=== PATIENT | male | born 1930 | race Caucasian/White ===

== ENCOUNTER → 2017-12-15 | Outpatient (CLI) | payer BC, MEDICARE ==
[~2017-12-15] MED LIST: ALBU90OI INH; ALPR.5 PO; AMLO5 PO; ANTIBIOTIC; ATOR10 PO; BENZ100A PO; CALC.25 PO; CALCA500CH PO; CHOL10002 PO; Carbidopa-Levo1 EAC4 PO; ELIQUIS2.5 MG PO; ELIQUIS5 MG PO; FISH OIL 1,2001 EACH PO; FISH1000 PO; FURO40 PO; GABA100 PO; HYDACE10B PO; HYDR1TAB94; LEVCAR10; LORA.5 PO; METO25 PO; METO25ER PO; Mucinex600 MG PO; OLME20 PO; OLME20-12. PO; PARKINSONS MED; PSYL5.85P PO; ROPI2 PO; ROSU10TA; ROSU10TA PO; TAMS.4ER; TAMS.4ER PO; TRAM50 PO; Voltaren100 GM; ZOLP12.5 PO; ZOLP5 PO
[2017-12-15 10:06] LABS: BASOPHILS ABSOLUTE AUTO 0.02 K/mm3 (0.00-0.23); BASOPHILS PERCENT AUTO 0 % (0-2); EOSINOPHILS ABSOLUTE AUTO 0.18 K/mm3 (0.00-0.68); EOSINOPHILS PERCENT AUTO 3 % (0-6); Hematocrit 44.3 % (37.0-53.0); Hemoglobin 14.5 g/dL (13.5-17.5); IMMATURE GRAN ABSOLUTE AUTO 0.02 K/mm3 (0.00-0.10); IMMATURE GRAN PERCENT AUTO 0 % (0-1); LYMPHOCYTES ABSOLUTE AUTO 1.76 K/mm3 (0.84-5.20); LYMPHOCYTES PERCENT AUTO 30 % (21-46); MONOCYTES ABSOLUTE AUTO 0.56 K/mm3 (0.16-1.47); MONOCYTES PERCENT AUTO 10 % (4-13); Mean Corpuscular HGB 30.3 pg (26.0-34.0); Mean Corpuscular HGB Conc 32.7 g/dL (31.5-36.5); Mean Corpuscular Volume 93 fL (80-100); Mean Platelet Volume 9.9 fL (9.1-12.4); NEUTROPHILS PERCENT AUTO 57 % (41-73); Platelet Count 173 K/mm3 (150-400); RDW Coefficient Variation 14.4 % (11.7-14.2); Red Blood Cell Count 4.78 M/mm3 (4.30-5.90); White Blood Cell Count 5.84 K/mm3 (4.00-11.30)
[2017-12-15 10:43] LABS: Albumin, Blood 3.4 g/dL (3.4-5.0); Bilirubin, Total 0.8 mg/dL (0.1-1.0); Bun/Creatinine Ratio 17.7 (12.0-20.0); Calcium, Blood 9.4 mg/dL (8.5-10.1); Creatinine, Blood 1.92 mg/dL (0.60-1.20); Globulin, Blood 3.4 g/dL (2.2-4.0); Potassium, Blood 3.9 mmol/L (3.5-5.5); Total Protein, Blood 6.8 g/dL (6.4-8.2)
== END ==
LOC: LAB SHORT 09:55 → LAB EV 09:55
DX: N18.3 Chronic kidney disease, stage 3 (moderate) (principal)
CPT/HCPCS: 80053; 85025

== ENCOUNTER → 2018-03-15 | Outpatient (CLI) | payer BC, MEDICARE ==
[~2018-03-15] MED LIST changes: +ACETAMINOPHEN500 MG PO; +Augmentin 875-1 EACH PO; +FISH OIL 1,2001 EAC1 PO; -HYDACE10B PO; +LIDOCAINE1 EACH TOP; +Miralax17 GM PO; +Norco 10-325 T1 EACH PO; +OMEG1CAP30 PO; +ROXICODONE5 MG PO
== END | disposition home or self-care (01) ==
LOC: LAB SHORT 11:11 → LAB 11:11
DX: R19.7 Diarrhea, unspecified (principal)
CPT/HCPCS: 87493

== ENCOUNTER 2018-07-22 08:37 | Emergency (ER) | payer BC, MEDICARE ==
[~2018-07-22] VITALS: Ht 170.2 cm; Wt 81.7 kg
[~2018-07-22 08:37] MED LIST changes: +BISA10S PR; +Enema133 M1 PR; +Milk Of Ma400 MG/5 M PO; +[UNRECOGNIZED DRUG - OTHER] PO
[2018-07-22 09:03] LABS: BASOPHILS ABSOLUTE AUTO 0.02 K/mm3 (0.00-0.23); BASOPHILS PERCENT AUTO 0 % (0-2); EOSINOPHILS ABSOLUTE AUTO 0.19 K/mm3 (0.00-0.68); EOSINOPHILS PERCENT AUTO 3 % (0-6); Hematocrit 45.9 % (37.0-53.0); IMMATURE GRAN ABSOLUTE AUTO 0.02 K/mm3 (0.00-0.10); IMMATURE GRAN PERCENT AUTO 0 % (0-1); LYMPHOCYTES ABSOLUTE AUTO 1.57 K/mm3 (0.84-5.20); LYMPHOCYTES PERCENT AUTO 24 % (21-46); MONOCYTES ABSOLUTE AUTO 0.54 K/mm3 (0.16-1.47); MONOCYTES PERCENT AUTO 8 % (4-13); Mean Corpuscular HGB 30.9 pg (26.0-34.0); Mean Corpuscular HGB Conc 32.7 g/dL (31.5-36.5); Mean Corpuscular Volume 95 fL (80-100); Mean Platelet Volume 10.2 fL (9.1-12.4); NEUTROPHILS ABSOLUTE AUTO 4.12 K/mm3 (1.96-9.15); NEUTROPHILS PERCENT AUTO 64 % (41-73); Platelet Count 180 K/mm3 (150-400); RDW Coefficient Variation 14.1 % (11.7-14.2); RDW Standard Deviation 49.3 fL (35.1-46.3); Red Blood Cell Count 4.85 M/mm3 (4.30-5.90); White Blood Cell Count 6.46 K/mm3 (4.00-11.30)
[2018-07-22 09:16] LABS: Albumin, Blood 2.9 g/dL (3.4-5.0); Albumin/Globulin Ratio 0.8 (0.8-1.8); Bilirubin, Total 0.8 mg/dL (0.1-1.0); Bun/Creatinine Ratio 18.6 (12.0-20.0); Creatinine, Blood 1.88 mg/dL (0.60-1.20); Globulin, Blood 3.8 g/dL (2.2-4.0); Potassium, Blood 3.7 mmol/L (3.5-5.5); Total Protein, Blood 6.7 g/dL (6.4-8.2)
[2018-07-22 09:17] LABS: International Normalized Ratio 1.09; Prothrombin Time Results 11.2 Sec (9.7-11.5)
[2018-07-22] MEDS ORDERED: METO25ER PO (09:21)
[2018-07-22] MEDS ORDERED: OLME20 PO (09:23)
[2018-07-22] MEDS ORDERED: ELIQUIS2.5 MG PO (09:24)
[2018-07-22] MEDS ORDERED: FURO80 PO (09:28)
== END 2018-07-22 10:12 | disposition home or self-care (01) ==
LOC: ER 08:37
PROVIDERS: Emergency Medicine
DX: R60.0 Localized edema (principal); I12.9 Hypertensive chronic kidney disease with stage 1 through stage 4 chronic kidney disease, or unspecified chronic kidney disease; N18.4 Chronic kidney disease, stage 4 (severe); Z86.73 Personal history of transient ischemic attack (TIA), and cerebral infarction without residual deficits; Z88.2 Allergy status to sulfonamides; Z79.899 Other long term (current) drug therapy
CPT/HCPCS: 36415; 70450; 71046; 80053; 84484; 85025; 85610; 93005; 93010; 99285-25

== ENCOUNTER 2021-08-16 12:33 | Inpatient (IN) | payer BC, MEDICARE ==
[~2021-08-16] VITALS: Ht 172.7 cm; Wt 63.5 kg
[~2021-08-16 12:33] MED LIST changes: +CARBIDOPA-LEVO1 EA17 PO; -Carbidopa-Levo1 EAC4 PO; +FURO80 PO; +ROPINIROLE HCL2 MG PO
[2021-08-16 13:24] LABS: Source, Urine Straight Cath
[2021-08-16 13:28] LABS: BASOPHILS ABSOLUTE AUTO 0.02 K/mm3 (0.00-0.23); BASOPHILS PERCENT AUTO 0 % (0-2); EOSINOPHILS ABSOLUTE AUTO 0.04 K/mm3 (0.00-0.68); EOSINOPHILS PERCENT AUTO 1 % (0-6); Hematocrit 38.3 % (37.0-53.0); Hemoglobin 12.6 g/dL (13.5-17.5); IMMATURE GRAN ABSOLUTE AUTO 0.02 K/mm3 (0.00-0.10); IMMATURE GRAN PERCENT AUTO 0 % (0-1); LYMPHOCYTES ABSOLUTE AUTO 1.84 K/mm3 (0.84-5.20); LYMPHOCYTES PERCENT AUTO 25 % (21-46); MONOCYTES ABSOLUTE AUTO 0.71 K/mm3 (0.16-1.47); MONOCYTES PERCENT AUTO 10 % (4-13); Mean Corpuscular HGB 30.4 pg (26.0-34.0); Mean Corpuscular HGB Conc 32.9 g/dL (31.5-36.5); Mean Corpuscular Volume 93 fL (80-100); Mean Platelet Volume 10.6 fL (9.1-12.4); NEUTROPHILS ABSOLUTE AUTO 4.84 K/mm3 (1.96-9.15); NEUTROPHILS PERCENT AUTO 65 % (41-73); Platelet Count 210 K/mm3 (150-400); RDW Coefficient Variation 13.2 % (11.7-14.2); RDW Standard Deviation 45.2 fL (35.1-46.3); Red Blood Cell Count 4.14 M/mm3 (4.30-5.90); White Blood Cell Count 7.47 K/mm3 (4.00-11.30)
[2021-08-16 13:43] LABS: Appearance, Urine Clear (Clear); Bilirubin, Urine Neg (Neg); Blood, Urine 3+ (Neg); Color, Urine Yellow (P-Yellow); Glucose Qualitative, Urine Neg (Neg); Ketones, Urine Neg (Neg); Leukocyte Esterase, Urine Neg (Neg); Nitrite, Urine Neg (Neg); Protein, Urine 2+ (Neg); Specific Gravity, Urine 1.015 (1.003-1.022); Urobilinogen, Urine NORM (Normal)
[2021-08-16 14:00] LABS: Bacteria Mod /hpf; Red Blood Cells, Urine 0-2 /hpf (0-2)
[2021-08-16 14:01] LABS: Amorphous Light (0-Heavy); White Blood Cells, Urine Rare /hpf (0-5)
[2021-08-16 14:02] LABS: Squamous Epithelial Cells Not Seen /hpf (Few)
[2021-08-16 14:17] LABS: Troponin I <0.015 ng/mL (0.000-0.040)
[2021-08-16 14:30] LABS: Alanine Aminotransfer (ALT/SGP 6 U/L (12-78); Albumin, Blood 3.3 g/dL (3.4-5.0); Albumin/Globulin Ratio 0.7 (0.8-1.8); Alk Phos 68 U/L (50-136); Anion Gap 13 mmol/L (6-16); Aspartate Aminotrans (AST/SGOT 12 U/L (12-37); Bilirubin, Total 1.2 mg/dL (0.1-1.0); Blood Urea Nitrogen 88 mg/dL (8-24); Bun/Creatinine Ratio 9.2 (12.0-20.0); CO2, Blood 26 mmol/L (21-32); Calcium, Blood 9.8 mg/dL (8.5-10.1); Chloride, Blood 98 mmol/L (98-108); Creatinine, Blood 9.59 mg/dL (0.60-1.20); Globulin, Blood 4.6 g/dL (2.2-4.0); Glomerular Filtration Rate 5 (60-); Glucose, Blood 123 mg/dL (70-99); Potassium, Blood 3.8 mmol/L (3.5-5.5); Sodium, Blood 137 mmol/L (136-145); Total Protein, Blood 7.9 g/dL (6.4-8.2)
[2021-08-16 14:54] LABS: Influenza A, PCR NEGATIVE (NEGATIVE); Influenza B, PCR NEGATIVE (NEGATIVE); Resp Syncytial Virus, PCR NEGATIVE (NEGATIVE); SARS-Cov-2 (COVID-19) PCR, MMC NEGATIVE (NEGATIVE)
[2021-08-16 16:39] LABS: Creatine Kinase MB 2.4 ng/mL (0.0-3.6); Creatine Kinase MB Index 0.4 (0.0-4.0)
[2021-08-16] MEDS ORDERED: ARTIFICIAL TEAR15 M2 BOTHEYES (16:54)
[2021-08-16] MEDS ORDERED: BISA10S PR (16:55)
[2021-08-16] MEDS ORDERED: ASPERCREME LIDO73 ML TOP (16:55)
[2021-08-16] MEDS ORDERED: CARBAMIDE PEROXIDE BOTHEARS (16:56)
[2021-08-16] MEDS ORDERED: DULO30 PO (16:57)
[2021-08-16] MEDS ORDERED: MIRALAX17 GM PO (16:59)
[2021-08-16] MEDS ORDERED: ZOLP6.25 PO (20:10)
[2021-08-16] MEDS ORDERED: [UNRECOGNIZED DRUG - OTHER] PO (20:18)
[2021-08-16] MEDS ORDERED: OMEGA ACID ETHYL PO (20:18)
[2021-08-16 21:34] LABS: Bun/Creatinine Ratio 9.6 (12.0-20.0); Calcium, Blood 9.4 mg/dL (8.5-10.1); Creatinine, Blood 9.03 mg/dL (0.60-1.20); Potassium, Blood 4.1 mmol/L (3.5-5.5)
[2021-08-17 04:37] LABS: BASOPHILS ABSOLUTE AUTO 0.02 K/mm3 (0.00-0.23); BASOPHILS PERCENT AUTO 0 % (0-2); EOSINOPHILS ABSOLUTE AUTO 0.02 K/mm3 (0.00-0.68); EOSINOPHILS PERCENT AUTO 0 % (0-6); Hematocrit 37.2 % (37.0-53.0); Hemoglobin 12.2 g/dL (13.5-17.5); IMMATURE GRAN ABSOLUTE AUTO 0.02 K/mm3 (0.00-0.10); IMMATURE GRAN PERCENT AUTO 0 % (0-1); LYMPHOCYTES ABSOLUTE AUTO 1.27 K/mm3 (0.84-5.20); LYMPHOCYTES PERCENT AUTO 19 % (21-46); MONOCYTES ABSOLUTE AUTO 0.57 K/mm3 (0.16-1.47); MONOCYTES PERCENT AUTO 9 % (4-13); Mean Corpuscular HGB 30.5 pg (26.0-34.0); Mean Corpuscular HGB Conc 32.8 g/dL (31.5-36.5); Mean Corpuscular Volume 93 fL (80-100); Mean Platelet Volume 10.3 fL (9.1-12.4); NEUTROPHILS ABSOLUTE AUTO 4.67 K/mm3 (1.96-9.15); NEUTROPHILS PERCENT AUTO 71 % (41-73); Platelet Count 208 K/mm3 (150-400); RDW Coefficient Variation 13.2 % (11.7-14.2); RDW Standard Deviation 45.4 fL (35.1-46.3); White Blood Cell Count 6.57 K/mm3 (4.00-11.30)
[2021-08-17 05:19] LABS: CPK Creatine Kinase 391 U/L (39-308)
[2021-08-17 05:30] LABS: Alanine Aminotransfer (ALT/SGP <6 U/L (12-78); Albumin, Blood 2.8 g/dL (3.4-5.0); Albumin/Globulin Ratio 0.7 (0.8-1.8); Alk Phos 65 U/L (50-136); Anion Gap 12 mmol/L (6-16); Aspartate Aminotrans (AST/SGOT 11 U/L (12-37); Blood Urea Nitrogen 85 mg/dL (8-24); Bun/Creatinine Ratio 9.9 (12.0-20.0); CO2, Blood 25 mmol/L (21-32); Calcium, Blood 9.2 mg/dL (8.5-10.1); Chloride, Blood 103 mmol/L (98-108); Glomerular Filtration Rate 6 (60-); Glucose, Blood 112 mg/dL (70-99); Potassium, Blood 4.1 mmol/L (3.5-5.5); Sodium, Blood 140 mmol/L (136-145); Total Protein, Blood 6.8 g/dL (6.4-8.2)
--- NOTE | 2021-08-17 06:19 | NUR ---
PATIENT HAS HAD AN UNEVENTFUL NIGHT. A&O ONLY TO SELF. PLEASANTLY CONFUSED. PATIENT NEEDS TO BE ENCOURAGED TO EAT AND DRINK AND IS A FEEDER. PATIENT IS INCONTINENT AND HAS ATTENDS IN PLACE. HAS ESSENTIAL TREMORS AND IS RIDGIT WITH ADLS. NS RUNNING AT 125/HR TO RT WRIST. SCDS IN PLACE. VITALS REVIEWED CALL LIGHT IN REACH.
--- NOTE | 2021-08-17 19:21 | NUR ---
SUMMARY- PT A/O TO SELF AND SON. IS VERBAL AND PLEASANTLY CONFUSED. FOLLOWS COMMANDS PHYSICALLY ABLE. HAS TREMOR AND VERY RIGID. WORKED WITH PT AND OT, ABLE TO STAND AT EDGE OF BED WITH 2 MAX SBA GAIT BELT. VERY RIGID AND POST LEAN, UNSURE AND RIGID. PT ALSO GOT UP WITH 2RN'S TO BSC WITH NO COORDINATION, VERY RIGID AND AFRAID OF FALLING, WOULD NOT SIT DOWN WITHOUT ALOT OF COAXING AND AID. THAN BACK TO BED HAD VERY DIFFICULT TIME WITH PT'S LEGS GIVING OUT AND UNABLE TO HELP, 2 RN LIFT WITH GAIT BELT BACK TO BED. NEPH CONSULT DR MEDRANO WITH NEW LABS ORDERED AND NS DECREASED TO 75. PT TOLERATING APPLE JUICE BUT REFUSING ALL SOLIDS. PT NOTED TO HAVE LIKELY ASPIRATED AFTER TAKING IN JUICE, COUGHING X2 TODAY. SWALLOW EVAL ORDERED. STOPPED PO INTAKE EXCEPT PUDDDING WITH MEDS AND SIPS WITH RN ASSIST VERY CAREFUL TO LUISANA AND ENC CHIN TO CHEST AND TO SLOW PACE WHEN DRINKING. RELAYED INFORMATION TO NOC RN. SON MAYELA AT BEDSIDE MOST OF THE AFTERNOON, INVOLVED IN DECISION MAKING AND ASKED TO BE CALLED DAY OR NIGHT FOR CHANGES WITH DAD.
[2021-08-18 04:44] LABS: BASOPHILS ABSOLUTE AUTO 0.03 K/mm3 (0.00-0.23); BASOPHILS PERCENT AUTO 0 % (0-2); EOSINOPHILS ABSOLUTE AUTO 0.03 K/mm3 (0.00-0.68); EOSINOPHILS PERCENT AUTO 0 % (0-6); Hematocrit 33.7 % (37.0-53.0); Hemoglobin 11.1 g/dL (13.5-17.5); IMMATURE GRAN ABSOLUTE AUTO 0.03 K/mm3 (0.00-0.10); IMMATURE GRAN PERCENT AUTO 0 % (0-1); LYMPHOCYTES ABSOLUTE AUTO 1.45 K/mm3 (0.84-5.20); LYMPHOCYTES PERCENT AUTO 19 % (21-46); MONOCYTES ABSOLUTE AUTO 0.63 K/mm3 (0.16-1.47); MONOCYTES PERCENT AUTO 8 % (4-13); Mean Corpuscular HGB 30.2 pg (26.0-34.0); Mean Corpuscular HGB Conc 32.9 g/dL (31.5-36.5); Mean Corpuscular Volume 92 fL (80-100); Mean Platelet Volume 10.6 fL (9.1-12.4); NEUTROPHILS ABSOLUTE AUTO 5.46 K/mm3 (1.96-9.15); NEUTROPHILS PERCENT AUTO 72 % (41-73); Platelet Count 207 K/mm3 (150-400); RDW Coefficient Variation 13.2 % (11.7-14.2); RDW Standard Deviation 44.7 fL (35.1-46.3); Red Blood Cell Count 3.67 M/mm3 (4.30-5.90); White Blood Cell Count 7.63 K/mm3 (4.00-11.30)
--- NOTE | 2021-08-18 04:47 | NUR ---
PATIENT HAS RESTED OFF AND ON DURING THE SHIFT. GAVE PM MEDICATIONS AND TOLERATED WELL. WAS ABLE TO GET THE PATIENT TO EAT 1 CUP OF APPLESAUCE WITH A GREAT DEAL OF ENCOURAGEMENT. APPLIED KPAD TO PTS BACK TO HELP RELIEVE DISCOMFORT. PRN PAIN MED WAS ADMINISTERED @ APPROXIMATELY 0200 WITH GOOD RESULTS. Q2 HR TURNS AND CHECKS WERE COMPLETED. VITALS REVIEWED . CALL LIGHT IN REACH BED IN LOWEST POSITION.
[2021-08-18 05:13] LABS: Albumin, Blood 2.3 g/dL (3.4-5.0); Albumin/Globulin Ratio 0.6 (0.8-1.8); Bilirubin, Total 0.9 mg/dL (0.1-1.0); Bun/Creatinine Ratio 10.1 (12.0-20.0); Calcium, Blood 8.8 mg/dL (8.5-10.1); Creatinine, Blood 7.54 mg/dL (0.60-1.20); Globulin, Blood 3.6 g/dL (2.2-4.0); Magnesium, Blood 2.1 mg/dL (1.6-2.4); Phosphorus, Blood 5.2 mg/dL (2.5-4.9); Potassium, Blood 3.6 mmol/L (3.5-5.5); Total Protein, Blood 5.9 g/dL (6.4-8.2)
--- NOTE | 2021-08-18 19:34 | NUR ---
SUMMARY- PT MUCH MORE SLEEPY AND GRUMPY TODAY. CONT TO REFUSE SOLID FOODS EXCEPT A FEW BITES. TOLERATING APPLE JUICE. PAIN CONTROLLED WITH OXY Q4. BP ELEVATED AT 1530 WHEN PT WAS HAVING MORE PAIN. CALLED DR ALEJANDRO WHO ORDERED ADDITIONAL FENT 25MG FOR SEVERE BPT. WILL F/U WITH BP. PLAN FOR LABS IN AM AND DR MEDRANO WILL EVAL PROGRESS AND PLAN. FAMILY INVOLVED IN DECISION MAKING. PT DOWN FOR CT AT 1530. TURNED SIDE TO SIDE, INCONT CARE.
[2021-08-18 23:38] LABS: Source, Urine Foley catheter
[2021-08-18 23:41] LABS: Bilirubin, Urine Neg (Neg); Blood, Urine 4+ (Neg); Glucose Qualitative, Urine Neg (Neg); Ketones, Urine Neg (Neg); Leukocyte Esterase, Urine Neg (Neg); Nitrite, Urine Neg (Neg); Protein, Urine 2+ (Neg); Specific Gravity, Urine 1.015 (1.003-1.022); Urobilinogen, Urine NORM (Normal)
--- NOTE | 2021-08-18 23:54 | NUR ---
CR CATHETER PLACED PER ORDER PLACED 08/16/21. URINE YELLOW AND CLEAR. SPECIMEN SENT TO LAB. PT TOLERATED WELL.
--- NOTE | 2021-08-18 23:58 | NUR ---
PT RESTING QUIETLY AT THIS TIME. CR PATENT AND DRAINING. CALL LT IN REACH.
[2021-08-19 00:18] LABS: Appearance, Urine Clear (Clear); Color, Urine Yellow (P-Yellow)
[2021-08-19 00:19] LABS: White Blood Cells, Urine Not Seen /hpf (0-5)
[2021-08-19 00:20] LABS: Amorphous Light (0-Heavy); Bacteria Rare /hpf; Squamous Epithelial Cells Rare /hpf (Few)
--- NOTE | 2021-08-19 04:03 | NUR ---
SHIFT SUMMARY: ALERT TO NAME. HX OF DEMENTIA AND PARKINSON'S. ESSENTIAL TREMORS. MEDICATED WITH OXYCODONE X 2 DURING SHIFT FOR BACK PAIN. PT RESTED WELL. ON RA. TOOK MEDS WHOLE AND ONE AT A TIME WITH APPLESAUCE WITHOUT COUGHING OR CHOKING WITH HOB ELEVATED. NS INFUSING AT 75 MLS/HR FOR GENTLE HYDRATION. CR CATHETER PLACED, INITIAL URINE YELLOW, NOW DRAINING LIGHT CRANBERRY COLOR URINE PT HAS A HX OF BPH. TOLERATED WELL. WILL CONTINUE TO PROVIDE CARE UNTIL SHIFT REPORT.
[2021-08-19 05:16] LABS: Hematocrit 34.7 % (37.0-53.0); Hemoglobin 11.5 g/dL (13.5-17.5); Mean Corpuscular HGB 30.5 pg (26.0-34.0); Mean Corpuscular HGB Conc 33.1 g/dL (31.5-36.5); Mean Corpuscular Volume 92 fL (80-100); Mean Platelet Volume 10.7 fL (9.1-12.4); Platelet Count 219 K/mm3 (150-400); RDW Coefficient Variation 13.4 % (11.7-14.2); Red Blood Cell Count 3.77 M/mm3 (4.30-5.90); White Blood Cell Count 8.54 K/mm3 (4.00-11.30)
[2021-08-19 05:48] LABS: Albumin, Blood 2.6 g/dL (3.4-5.0); Albumin/Globulin Ratio 0.7 (0.8-1.8); Alk Phos 56 U/L (50-136); Anion Gap 14 mmol/L (6-16); Aspartate Aminotrans (AST/SGOT 11 U/L (12-37); Bilirubin, Total 0.9 mg/dL (0.1-1.0); Blood Urea Nitrogen 73 mg/dL (8-24); Bun/Creatinine Ratio 10.5 (12.0-20.0); CO2, Blood 22 mmol/L (21-32); Calcium, Blood 9.2 mg/dL (8.5-10.1); Chloride, Blood 106 mmol/L (98-108); Creatinine, Blood 6.94 mg/dL (0.60-1.20); Globulin, Blood 3.6 g/dL (2.2-4.0); Glomerular Filtration Rate 8 (60-); Glucose, Blood 139 mg/dL (70-99); Phosphorus, Blood 5.4 mg/dL (2.5-4.9); Potassium, Blood 3.8 mmol/L (3.5-5.5); Sodium, Blood 142 mmol/L (136-145); Total Protein, Blood 6.2 g/dL (6.4-8.2)
[2021-08-19 05:49] LABS: Alanine Aminotransfer (ALT/SGP <6 U/L (12-78)
--- NOTE | 2021-08-19 17:10 | NUR ---
Spoke with machine leather trimmer Kristi and discussed case. Family is leaning towards focusing on comfort and would benefit from Palliative Care visit. Pt has Alzheimer's Disease with significant confusion. Pt requires assistance with bathing, dressing, transfers (Pt mainly bed bound), feeding, and is incontinent. Met with Pt's son Niranjan and family member Seth in Palliative Care office. Listened as Niranajn reports seeing a significant decline in Pt's level of function and cognition in the last 2 months. He reports staff at facility has not been offering adequate care and express concerns with medication administration. Continued therapeutic listening as Niranjan reports knowing Pt would want to focus on comfort at this point in his life. Discussed comfort care as an option and educated on comfort care philosophy with V/U made by Niranjan. Niranjan reports being Pt's POA. Niranjan would like to move forward with comfort care and hospice once safe placment is found. Continued therapeutic listening and answered questions. No other concerns reported at this time. Spoke with Dr Cortez and discussed case. Placed comfort care order, comfort care order set, D/C maintenance medications per V/O from Dr Cortez. Continued cardiac medication and Carbadopa/Levadopa for comfort. Palliative Care will remain available.
--- NOTE | 2021-08-19 18:00 | NUR ---
SHIFT SUMMARY PT IS ALERT AT TIMES, BUT CONFUSED. HX OF ALZ DEMENTIA AND PARKINSONS WITH ESSENTIAL TREMORS. PT IS STIFF WITH TURNING AND CALLS OUT IN PAIN. SON REPORTED PAIN TO BACK AND SHOULDER WELL KNEES. MEDICATED THRU OUT THE DAY PER EMAR. PT'S SON AND GRANDSON HERE THIS AFTERNOON. PT NOW MADE COMFORT CARE. ADMITTED FOR HAIR. CR PLACED FOR STRICT I&O'S, BUT DRAINING CRANBERRY URINE. PT CONSTANTLY PULLING ON IT. CR CATH CHANGED OUT. ATTENDS PLACED WITH BOTTOMS PLACED TO HIDE TUBING. PT SEEMS TO BE LEAVING IT ALONE NOW. PT MEDICATED FOR COMFORT AND IS RESTING QUIETLY AT THIS TIME. REFUSED TO EAT ALL DAY UNTIL THIS EVENING. PT DID EAT A FEW BITES OF ROAST AND SEVERAL OF APPLESAUCE, BEFORE STATING THAT'S ENOUGH. GRANDSON AT BS. DENIES FURTHER NEEDS. CALL LT IN REACH. BED ALARM ON FOR SAFETY.
--- NOTE | 2021-08-20 02:56 | NUR ---
PATIENT VERY ANXIOUS UP UNTIL AROUND 2300. HE WAS UNWILLING TO ALLOW US TO SIT HIM UP, SO HS MEDS AND PRN ATIVAN WERE CRUSHED, MIXED WITH H2O AND GIVEN WITH A 1 ML SYRINGE LIKE HIS ROXYNOL. SON MAYELA CAME BACK IN AROUND 2300 TO SIT WITH HIS DAD FOR ABOUT 2 HOURS. PARTH WAS FINALLY ABLE TO RELAX AND GET SOME REST STARTING AROUND 0100. HE LOVES HIS APPLEJUICE AND WILL SIGHT UP WHEN GIVEN THIS THROUGH A 1-3 ML SYRINGS. TOLD HIS SON, THIS RN WOULD BRING IN SOME 1 ML SYRINGES IN THE MORNING.
--- NOTE | 2021-08-20 10:28 | NUR ---
Pt resting in bed with family at bedside. Engaged in therapeutic listening as family reports Pt stating having pain. Answered questions and deferred some questions for healthcare associate to address as they are regarding D/C and placement. Family expresses appreciation and reports no other concerns at this time. Spoke with RN Slime who is covering for Primary RN and relayed request for pain medications. Palliative Care will remain available.
--- NOTE | 2021-08-20 11:14 | NUR ---
AWARE PATIENT ON COMFORT CARE
--- NOTE | 2021-08-20 18:16 | NUR ---
PATIENT ON COMFORT CARE. HX ALZHEIMERS AND EXTREME TREMORS BUE WHEN MOVING ARMS. MEDICATED FOR PAIN AND ANXIETY. DARK RED URINE DRAINING FROM CR. TURNED Q 2 HOURS. PATIENT MOVES OFTEN IN BED. WCTM
--- NOTE | 2021-08-21 06:16 | NUR ---
slept in short times, then awoke extremely anxious and trying to pull on castle. Son Jasen and a close family friend stayed most of the night in room and were very attentive to patient. Premedicating prior to turning was a must. when wew had to change out his pajama pants and briefs, had to give 20 roxynol, 0.25mcg Fent and one mg ativan to be able to keep him safe. Currently sleeping in room. family has yet to arrive this morning
--- NOTE | 2021-08-21 07:15 | NUR ---
SLEEPING. APPEARS COMFORTABLE
--- NOTE | 2021-08-21 16:28 | NUR ---
MEDICATED PRN FOR PAIN AND ANXIETY. TURNED PRN. RELATIVES AND FRIENDS IN TO VISIT. PATIENT HAS PERIODS OF APNEA ; OTHERWISE, VERY SHALLOW BREATHING. WCTM
--- NOTE | 2021-08-21 18:52 | NUR ---
Multiple visits to support pt and evaluate symptoms pt transitioning having some terminal aggitation. will monitor family went home for the evening.
--- NOTE | 2021-08-21 21:47 | NUR ---
PATIENT APPEARS COMFORTABLE. UPPER AIRWAYS WITH RATTLE NON RESPONSIVE TO ATROPINE. PATIENT HOT TO TOUCH. REMOVED BEDSPREAD. PLAYING CLASSICAL MUSIC IN ROOM PATIENT SON SAID HIS FATHER WAS FOND OF IT..WILL CONTINIUE CLOSE MONITORING AND TREAT NEEDED FOR COMFORT.
--- NOTE | 2021-08-21 23:29 | NUR ---
Scopalomine patch to right clavicular area as atropine gtts not taking effect. Very minimal response to voice, however still shakes or pulls away slightly when touched. blanket remains off as patient is warm and clammy
--- NOTE | 2021-08-22 11:36 | NUR ---
Pt lying in bed, eyes remain closed through the visit. He has what appears to be terminal agitation. Spoke with pt's primary nurse; she agrees and will give lorazepam and monitor for effectiveness. If this isn't effection, can try haldo next time. No changes needed to care plan at this time.
--- NOTE | 2021-08-22 15:44 | NUR ---
SHIFT SUMMARY PT MEDICATED AT START OF SHIFT; REMAINS ON COMFORT CARE. FAMILY IN AND OUT OF RM THRU OUT THE DAY. PT REPOSITIONED FOR COMFORT. MEDICATED NEEDED FOR PAIN AND ANXIETY. ORAL CARE DONE; SM SIPS OF APPLE JUICE GIVEN OCCASSIONALLY. PT ONLY ABLE TO TOLERATE A COUPLE OF SPOONS AT A TIME. RESTING QUIETLY AT THIS TIME. WILL CONTINUE TO MONITOR.
--- NOTE | 2021-08-22 18:09 | NUR ---
SON AND IN ROOM. PT LIMBS JUMPING QUITE A BIT. RESP IRREG. H/R IRREG, ABOUT 100/MIN. DID COUGH FAIRLY WELL WHEN I WAS IN ROOM. RESP IRREG, ABOUT 6-10. MED FOR PAIN. SAT UP TO ADMIN. FAMLY AT BEDSIDE. BED IN LOW POSITION, CALL LITE IN REACH.
== END 2021-08-22 23:20 | DRG 682 ==
LOC: ER 12:33 → MEDS 15:58 → ERHOLD 15:58 → MEDS 20:12
PROVIDERS: Emergency Medicine; Internal Medicine; Nurse Practitioner Acute Care; ADMIT Internal Medicine
DX: N17.9 Acute kidney failure, unspecified (principal); J18.9 Pneumonia, unspecified organism; F11.20 Opioid dependence, uncomplicated; M62.82 Rhabdomyolysis; F01.50 Vascular dementia, unspecified severity, without behavioral disturbance, psychotic disturbance, mood disturbance, and anxiety; G30.9 Alzheimer's disease, unspecified; F02.80 Dementia in other diseases classified elsewhere, unspecified severity, without behavioral disturbance, psychotic disturbance, mood disturbance, and anxiety; G20 Parkinson's disease; I12.9 Hypertensive chronic kidney disease with stage 1 through stage 4 chronic kidney disease, or unspecified chronic kidney disease; Z66 Do not resuscitate; Z20.822 Contact with and (suspected) exposure to COVID-19; Z51.5 Encounter for palliative care; N40.0 Benign prostatic hyperplasia without lower urinary tract symptoms; F41.1 Generalized anxiety disorder; E78.5 Hyperlipidemia, unspecified; I48.0 Paroxysmal atrial fibrillation; Z79.01 Long term (current) use of anticoagulants; F32.A Depression, unspecified; Z86.73 Personal history of transient ischemic attack (TIA), and cerebral infarction without residual deficits; Z98.890 Other specified postprocedural states; Z79.899 Other long term (current) drug therapy; Z88.2 Allergy status to sulfonamides; Z96.651 Presence of right artificial knee joint; G89.29 Other chronic pain; E79.0 Hyperuricemia without signs of inflammatory arthritis and tophaceous disease; E86.9 Volume depletion, unspecified; D64.9 Anemia, unspecified; N20.0 Calculus of kidney
CPT/HCPCS: 0241U; 36415; 51702; 71045; 74176; 76770; 80048; 80053; 81001; 82550; 82553; 82570; 83735; 84100; 84300; 84443; 84484; 84540; 84550; 85025; 85027; 87086; 92610; 93005; 93010; 97162; 97166; 97530; 97535; 99285-25; A9270; J0696; J2060; J3010; J7030